=== PATIENT | female | born 1950 | race Two or more races ===

== ENCOUNTER 2021-01-21 07:37 | Day surgery (SDC) | payer OTHER ==
[~2021-01-21 07:37] MED LIST: VALTREX1000 MG
[2021-01-21] MEDS ORDERED: IBU600 MG PO (12:16)
== END 2021-01-21 16:20 | disposition home or self-care (01) ==
LOC: CIR.AMB 07:37
PROVIDERS: ATTEND Obstetrics & Gynecology Gynecology
DX: N84.1 Polyp of cervix uteri (principal); Z20.822 Contact with and (suspected) exposure to COVID-19

== ENCOUNTER 2023-10-20 10:55 | Outpatient (CLI) | payer OTHER ==
[~2023-10-20 10:55] MED LIST changes: +IBU600 MG PO
== END 2023-10-20 10:56 | disposition home or self-care (01) ==
LOC: NUCLEAR 10:55
PROVIDERS: ATTEND Internal Medicine
DX: I50.30 Unspecified diastolic (congestive) heart failure (principal); I10 Essential (primary) hypertension

== ENCOUNTER 2024-09-26 09:52 | Outpatient (CLI) | payer OTHER | END 2024-09-26 09:53 | disposition home or self-care (01) | LOC: NUCLEAR 09:52 | PROVIDERS: ATTEND Internal Medicine | DX: I50.30 Unspecified diastolic (congestive) heart failure (principal); I10 Essential (primary) hypertension ==